=== PATIENT | female | born 1960 | race Caucasian/White ===

== ENCOUNTER 2021-07-08 18:03 | Inpatient (IN) | payer OTHER, MEDICAID ==
[~2021-07-08] VITALS: Ht 175.3 cm; Wt 139.3 kg
[2021-07-08 18:15] VITALS: BP 139/85
[2021-07-08] MEDS ORDERED: SEROQUEL (18:27)
[2021-07-08] MEDS ORDERED: XANAX (18:27)
[2021-07-08 18:40] LABS: ABSOLUTE BASOPHILS 0.1 thou/uL (0.0-0.2); ABSOLUTE EOSINOPHILS 0.2 thou/uL (0.0-0.7); ABSOLUTE LYMPHOCYTES 2.5 thou/uL (0.8-5.3); ABSOLUTE MONOCYTES 0.5 thou/uL (0.0-1.2); ABSOLUTE NEUTROPHILS 4.7 thou/uL (1.6-8.1); BASOPHILS 1.3 %; EOSINOPHILS 2.1 %; HEMATOCRIT 35.3 % (37.0-47.0); HEMOGLOBIN 11.8 gm/dL (12.0-15.0); LYMPHOCYTES 31.4 %; MCH 29.3 pg (26.0-34.0); MCHC 33.4 g/dL (28.0-37.0); MPV 8.5 fl. (7.2-11.1); NUCLEATED RBCS 0 /100WBC; PLATELET COUNT* 310 thou/uL (150-400); POLYS 59.2 %; RBC 4.01 mil/uL (4.20-5.00); RDW-CV 15.5 % (10.5-14.5); WBC 7.9 thou/uL (4.0-11.0)
[2021-07-08 18:52] LABS: CALCIUM 9.2 mg/dL (8.5-10.1); CREATININE 1.1 mg/dL (0.6-1.3)
[2021-07-08 19:02] LABS: TOTAL BILIRUBIN 0.3 mg/dL (<0.1-1.0); TOTAL PROTEIN 6.9 g/dL (6.4-8.2)
[2021-07-08 19:04] LABS: POTASSIUM 2.7 mmol/L (3.5-5.1)
--- NOTE | 2021-07-08 19:15 | NUR ---
PATIENT IS REFUSING ANY MEDICATIONS AT THIS TIME. PATIENT STATES SHE HAS MULTIPLE ALLERGIES AND SHE DOES NOT KNOW ALL OF THEM. PATIENTS POTASSIUM IS CRITICALLY LOW AT 2.7, PATIENT HAS BEEN EDUCATED ON RISKS OF NOT RECIEVING POTASSIUM AND IS CURRENTLY REFUSING. DR. GAMBINO IS AWARE.
[2021-07-08 22:00] VITALS: BP 154/90
[2021-07-08 22:19] VITALS: BP 150/106
[2021-07-08] MEDS ORDERED: XANAX 0.5 MG0.5 M1 PO (23:35)
[2021-07-08] MEDS ORDERED: BENADRYL25 MG PO (23:36)
[2021-07-08] MEDS ORDERED: BUDESONIDE0.5 MG/2 M INH (23:37)
[2021-07-08] MEDS ORDERED: CARVEDILOL12.5 MG PO (23:38)
[2021-07-08] MEDS ORDERED: CHILDREN'S ZYRT10 M1 PO (23:39)
[2021-07-08] MEDS ORDERED: FLEXERIL PO (23:40)
[2021-07-08] MEDS ORDERED: CUBICIN500 MG IVPB (23:40)
[2021-07-08] MEDS ORDERED: ACID CONTROLLER20 MG PO (23:41)
[2021-07-08] MEDS ORDERED: ADULT WAL-100 MG/5 M PO (23:42)
[2021-07-08] MEDS ORDERED: HUMALOG100 UNIT/1 SUBQ (23:43)
[2021-07-08] MEDS ORDERED: PREVACID30 MG PO (23:43)
[2021-07-08] MEDS ORDERED: LANTUS SUBQ (23:44)
[2021-07-08] MEDS ORDERED: SUPER THERAVIT1 EACH PO (23:44)
[2021-07-08] MEDS ORDERED: SEROQUEL200 MG PO ×2 (23:45→23:46)
[2021-07-08] MEDS ORDERED: VITAMIN C500 M2 PO (23:46)
[2021-07-09] MEDS ORDERED: ENTRESTO 24 MG1 EACH PO (00:15)
--- NOTE | 2021-07-09 04:18 | NUR ---
ASSUMED CARE OF PT AT 2200. PT IS ALERT AND ORIENTED X'3. HOWEVER, PT IS VERY MANIC, DELUSIONAL AND PARANOID. PT BELIEVES SHE IS ALLERGIC TO EVERYTHING. PT ALSO BELIEVES AND SAYS OUTRAGIOUS THINGS. ALSO PT BELIEVES SHE IS DYING. PT IS REFUSING SALINE AND WANTED TO REFUSE HER POTASSIUM. AFTER A LONG TALK PT FINALLY AGRRE TO POTASSIUM AND A PURE WICK FOR INCONTINANCE. PT IS ON ROOM AIR. PT IS IN SINUS RYTHM. VSS. PERRLA. NO COMPLAINTS OF PAIN. PT IS SITTING COMFORTABLY IN HER ROOM. WILL CONTINUE TO MONITOR PT.
[2021-07-09 11:12] VITALS: BP 152/97
[2021-07-09 12:00] VITALS: BP 129/75
--- NOTE | 2021-07-09 13:51 | EKG ---
[place] [address] ELECTROCARDIOGRAM REPORT Name: CHEY RAMIREZ Room: [address] ADM IN .R.#: [id number] Admission: 07/08/21 Attend Phys: Mele Cosby Discharge: Date of : 64 Date of Service: 07/08/211820 Report #: [id number] THIS REPORT FOR: //name// [facility] ED Test Date: 2021-07-08 Test Time: 18:21:06 Pat Name: CHEY RAMIREZ Department: Room: [facility] Gender: F Physically Impaired Teacher: GRACIA : 1960 Requested By: Kwadwo Sarkar Order Number: [id number] MD: Mikey Redd Measurements Intervals Taylor Rate: 76 P: [place]: QRS: -59 QRSD: 121 T: 7 QT: 570 QTc: 642 Interpretive Statements sinus rhythm artifact noted low voltage Nonspecific IVCD with LAD Anteroseptal infarct, age indeterminate No previous ECG available for comparison Electronically Signed On 07-09-2021 13:50:58 CDT by Mikey Redd [email or web address] <ELECTRONICALLY SIGNED> By: Mikey Redd MD, FACC 07/09/21 1350 182 182 Mikey Redd MD, [facility] /EPI
[2021-07-09 16:32] LABS: CREATININE 1.2 mg/dL (0.6-1.3); POTASSIUM 3.3 mmol/L (3.5-5.1)
[2021-07-09 16:35] LABS: MAGNESIUM 1.8 mg/dL (1.8-2.4); PHOSPHORUS* 4.1 mg/dL (2.5-4.9)
[2021-07-09 20:00] VITALS: BP 130/80
[2021-07-10] VITALS: BP 135/87
[2021-07-10 04:00] VITALS: BP 148/85
[2021-07-10 05:07] LABS: ABSOLUTE LYMPHOCYTES 1.1 thou/uL (0.8-5.3); ABSOLUTE MONOCYTES 0.6 thou/uL (0.0-1.2); ABSOLUTE NEUTROPHILS 6.9 thou/uL (1.6-8.1); BASOPHILS 0.2 %; HEMATOCRIT 33.3 % (37.0-47.0); HEMOGLOBIN 11.5 gm/dL (12.0-15.0); MCH 30.3 pg (26.0-34.0); MCHC 34.4 g/dL (28.0-37.0); MCV 88.1 fL (80.0-100.0); MONOCYTES 7.5 %; MPV 8.7 fl. (7.2-11.1); NUCLEATED RBCS 0 /100WBC; PLATELET COUNT* 289 thou/uL (150-400); POLYS 79.3 %; RBC 3.79 mil/uL (4.20-5.00); RDW-CV 15.7 % (10.5-14.5); WBC 8.7 thou/uL (4.0-11.0)
[2021-07-10 05:26] LABS: APTT 25.8 Seconds (25.0-31.3); INR 1.1
[2021-07-10 05:28] LABS: CALCIUM 8.5 mg/dL (8.5-10.1); CREATININE 1.2 mg/dL (0.6-1.3); MAGNESIUM 1.8 mg/dL (1.8-2.4); POTASSIUM 3.2 mmol/L (3.5-5.1); TOTAL BILIRUBIN 0.2 mg/dL (<0.1-1.0); TOTAL PROTEIN 6.8 g/dL (6.4-8.2)
[2021-07-10 07:08] LABS: GLYCOHEMOGLOBIN (HGB A1C) 6.7 % (4.8-5.6)
[2021-07-10 08:15] VITALS: BP 125/60
--- NOTE | 2021-07-10 14:28 | 2DMMODE ---
[place] [address] 2 D/M-MODE ECHOCARDIOGRAM Name: CHEY RAMIREZ Room: [address] ADM IN [facility]#: [id number] Admission: 07/08/21 Attend Phys: Mele Cosby Discharge: Date of : 64 Date of Service: 07/10/21 1427 Report #: [id number] THIS REPORT FOR: cc: Westley Gomez MD, Srinath MD Blick,Mikey Champion MD [facility] ~ APPROVED REPORT Study performed: 07/10/2021 10:48:16 EXAM: Comprehensive 2D, Doppler, and color-flow Echocardiogram Patient Location: In-Patient Room #: [facility] Status: routine BSA: 2.48 BP: 148/85 mmHg Rhythm: NSR Other Information Study Quality: Good Indications COPD Dyspnea 2D Dimensions IVSd: 14.28 (7-11mm) LVOT Diam: 21.37 (18-24mm) LVDd: 52.69 mm PWd: 14.39 (7-11mm) Ascending Ao: 37.89 (22-36mm) LVDs: 31.43 (25-40mm) Aortic Root: 34.75 mm Volumes Left Atrial Volume (Systole) LA ESV Index: 33.00 mL/m2 Aortic Valve AoV Peak Adalberto.: 1.32 m/s AO Peak Gr.: 6.97 mmHg LVOT Max P.42 mmHg AO Mean Gr.: 4.53 mmHg LVOT Mean P.79 mmHg LVOT Max V: 0.92 m/s AO V2 VTI: 26.15 cm LVOT Mean V: 0.62 m/s EUGENIA (VTI): 2.60 cm2 LVOT V1 VTI: 18.95 [place] [address] 2 D/M-MODE ECHOCARDIOGRAM Name: CHEY RAMIREZ Room: [address] IN .R.#: [id number] Admission: 07/08/21 Attend Phys: Mele Cosby Discharge: Date of : 64 Date of Service: 07/10/21 1427 Report #: [id number] Mitral Valve E/A Ratio: 1.07 MV Decel. Time: 204.86 ms MV E Max Adalberto.: 0.87 m/s MV PHT: 59.41 ms MVA (PHT): 3.70 cm2 TDI E/Lateral E': 6.69 E/Medial E': 8.70 Medial E' Adalberto.: 0.10 m/s Lateral E' Adalberto.: 0.13 m/s Pulmonary Valve PV Peak Adalberto.: 1.02 m/s PV Peak Gr.: 4.19 mmHg Left Ventricle The left ventricle is normal size. There is normal LV segmental wall motion. Mild concentric left ventricular hypertrophy. Left ventricular systolic function is normal. The left ventricular ejection fraction is within the normal range. LVEF is 50-55%. The left ventricular diastolic function is normal. Right Ventricle The right ventricle is normal size. The right ventricular systolic function is normal. Atria Left atrium is mildly dilated. The right atrium size is normal. Aortic Valve The aortic valve is normal in structure. No aortic regurgitation is present. There is no aortic valvular stenosis. Mitral Valve The mitral valve is normal in structure. trace mitral regurgitation. No evidence of mitral valve stenosis. Tricuspid Valve The tricuspid valve is normal in structure. Trace tricuspid regurgitation. Unable to assess PA pressure. Pulmonic Valve Pulmonic valve is not well visualized. There is no pulmonic [place] [address] 2 D/M-MODE ECHOCARDIOGRAM Name: CHEY RAMIREZ Room: [address] IN [facility]#: [id number] Admission: 07/08/21 Attend Phys: Mele Cosby Discharge: Date of : 64 Date of Service: 07/10/21 1427 Report #: [id number] Great Vessels The aortic root is normal in size. IVC is normal in size and collapses >50% with inspiration. Pericardium There is no pericardial effusion. <Conclusion> Mild concentric left ventricular hypertrophy. LVEF is 50-55%. Left atrium is mildly dilated. <ELECTRONICALLY SIGNED> By: Mikey Redd MD, FACC 07/10/211426 26 26 Mikey Redd MD, FACC /INF
[2021-07-10 16:00] VITALS: BP 161/93
--- NOTE | 2021-07-10 16:58 | CON ---
[address] [address] CONSULTATION Name: CHEY RAMIREZ Room: [address] ADM IN M.R.#: [id number] Admission: 07/08/21 Attend Phys: [place] Espinosa Discharge: Date of : 64 Report #: [id number] THIS REPORT FOR: cc: Westley Gomez MD, Srinath MD Pervez, Adeel MD ~ DATE OF CONSULTATION: 07/09/2021 REQUESTING PHYSICIAN: Kye Mccall MD INDICATION FOR CONSULTATION: Shortness of breath, history of asthma, and previous PEG and trach. HISTORY OF PRESENT ILLNESS: This is a 60-year-old female. We do not have old records available; and therefore, information available is fairly limited. Apparently, the patient was recently admitted to an outside institution, where she was in respiratory failure and underwent PEG and trach. She was eventually transferred to [place]. At some point, the tracheostomy was reversed, the patient says a couple of weeks ago. She still has the PEG in place. However, the patient at some point was allowed oral intake and now takes orally. She does, however, have dysphagia. She eventually was transferred from [place] to a long-term; she was unhappy with the care at the long-term; and shortly after transfer, EMS was called, and I am not certain as to whether the patient or another person called the EMS; the EMS eventually brought her to our hospital. At this time, the patient has elevated blood glucoses; she is hypokalemic; however, she is hemodynamically stable; and she is not on supplemental oxygen, she is saturating 94-96%. She is on high-dose Solu-Medrol started yesterday. At this point, she does not appear to be bronchospastic, although she does complain of shortness of breath. It is possible that she was bronchospastic yesterday. She does have a midline in place on the right upper extremity. The patient is fully awake; however, wanders off in answering questions; therefore, difficult to obtain a review of systems from her. REVIEW OF SYSTEMS: Review of systems for 12 points is negative except as mentioned above; however, her responses were sometimes not related to the questions asked. She has had some joint pains, which are longstanding. PAST MEDICAL HISTORY: Bronchial asthma; obstructive sleep apnea by clinical history, not known to me if it was in fact diagnosed by a sleep study; congestive heart failure; recent respiratory failure, requiring PEG and trach. Further information regarding past history not available at this time. SOCIAL HISTORY: Lifetime nonsmoker. No known history [place] [address] CONSULTATION Name: CHEY RAMIREZ Room: [address] IN M.R.#: [id number] Admission: 07/08/21 Attend Phys: West Espinosa Discharge: Date of : 64 Report #: [id number] drug use. CURRENT MEDICATIONS: List in [facility] reviewed. MEDICATIONS PRIOR TO TRANSFER: The list in [facility] also is reviewed. ALLERGIES: There are multiple agents listed as allergies. I am not certain if the patient in fact is allergic to all these agents. FAMILY HISTORY: No pertinent family history known at this time. PHYSICAL EXAMINATION: GENERAL: She is alert, awake and oriented; however, provides only a limited history. VITAL SIGNS: Has a pulse of 83 and a blood pressure of 129/75; she is saturating 94-96%, she is not on supplemental oxygen; respiratory rate is 16; she is afebrile with a temperature of 36.4. Body mass index elevated to 45. HEENT: Head is normocephalic and atraumatic. Pupils are equal and reactive. There is no throat erythema, fairly narrow airway, around Mallampati 4. NECK: Does not show raised JVP, asymmetry, mass or lymph nodes. There is also a bandage over her neck from a recent tracheostomy. CHEST: Symmetrical expansion on inspection and palpation. On auscultation, breath sounds are bilaterally equal, but decreased. I do not hear any added sounds. HEART: Regular. There is no murmur. ABDOMEN: Soft and nontender. The patient has a PEG in place in her abdomen. EXTREMITIES: Lower Extremities: Trace edema; there is some chronic venous changes; there is vague discomfort on palpation of the calf. Skin, however, is dry and intact in lower extremities. In the right upper extremity, there is a midline in place. NEUROLOGICAL: She did move all extremities bilaterally equally and spontaneously. No focal deficit was identified. LABORATORY DATA: The patient had a chest x-ray yesterday, this was reviewed; there are vague radiopaque densities bilaterally, likely chronic changes; she may also have mild increase in pulmonary vascular congestion. The patient's lab work, which shows significant hyperglycemia as well as hypokalemia, in [facility] reviewed. COVID-19 antigen was negative. CBC is unremarkable. ASSESSMENT AND PLAN: 1. Recent acute respiratory failure, requiring percutaneous endoscopic gastrostomy and tracheostomy. The patient still has the percutaneous endoscopic gastrostomy . Tracheostomy is noted to have been recently reversed. Awaiting old records regarding to assess etiology of her recent respiratory failure. The [address] [address] CONSULTATION Name: CHEY RAMIREZ Room: [address] IN [facility].#: [id number] Admission: 07/08/21 Attend Phys: West Espinosa Discharge: Date of : 64 Report #: [id number] patient currently is on room air, is not requiring supplemental oxygen, and her bicarbonate on the renal panel is 29 despite a potassium of 3.3, which would make it unlikely that she has significant CO2 retention. 2. Bronchial asthma. She does appear to have bronchial asthma; however, she does not appear to be actively bronchospastic. Glucoses are significantly elevated. I would cut back on steroid. We will consider discontinuing soon if she remains stable; however, I do recommend continuing with nebulized bronchodilators. We will also continue with budesonide via nebulizer and we will consider adding Singulair. 3. Obstructive sleep apnea by clinical history. I discussed with the patient that to me it appears she has obstructive sleep apnea, not known to me whether she has been diagnosed previously. I offered her a BiPAP while asleep. She says she is extremely claustrophobic. 4. Congestive heart failure, details are not available. She appears to be only mildly fluid overloaded. I would like to replace her potassium first. We will subsequently consider some diuresis. I did order an echo. 5. Hypokalemia. She has still now been refusing potassium replacement. I did convince her to receive IV potassium through her midline and I therefore sent a message to the patient's nurse via [employer] to replace potassium per protocol. We will also go ahead and give her 2 grams of magnesium sulfate. 6. Dysphagia/status post percutaneous endoscopic gastrostomy tube. I am told that we do not have the connectors for this particular percutaneous endoscopic gastrostomy. She is taking orally. She has difficulty swallowing. We will consult Speech. 7. Possibility of pulmonary infiltrates. She is ordered Levaquin. I am not certain if the patient has definite evidence of an infection. Pending further review, I did not change this at this time. We will repeat a chest x-ray tomorrow. 8. Evaluation for thromboembolic phenomena. We will do a D-dimer. If it is elevated, then I will consider obtaining lower extremity venous Dopplers as well as right upper extremity venous Dopplers. 9. Deep venous thrombosis prophylaxis, on Lovenox. 10. Gastrointestinal prophylaxis, on Protonix. 11. Clostridium difficile prophylaxis. If antibiotics to be continued, then we will suggest Lactinex. Thanks for this consultation. <ELECTRONICALLY SIGNED> By: Nico Dior MD 07/10/21 1658 174 Aantonio Dior MD /nt
--- NOTE | 2021-07-10 17:46 | NUR ---
PLAN FOR THE PT TO D/C TO SNF PENDING INSURANCE AUTH. PT/OT EVALS NEEDED TO ASSIST WITH OBTAINING AUTH. [facility] WILL ACCEPT PT AT D/C PENDING INSURANCE AUTH. CM WILL REMAIN AVAILABLE TO ASSIST AND FOLLOW NEEDED.
--- NOTE | 2021-07-10 19:10 | NUR ---
PT WAS VERY ANXIOUS AT THE BEGINNING OF THE SHIFT AND REQUIRED A SIGNIFICANT AMOUNT OF REASSURANCE AND EDUCATION. HAS CALMED DOWN GRADUALLY, BUT STILL IS DETERMINED TO TAKE ONLY CERTAIN MEDICATIONS. DESIRES TO BE ADMITTED TO REHAB HERE AT [facility].
[2021-07-10 20:59] VITALS: BP 130/86
[2021-07-11] VITALS (7 sets, daily range): BP systolic 116–152; BP diastolic 55–104
--- NOTE | 2021-07-11 08:34 | NUR ---
PT IS ABLE TO COMMUNICATE HER NEEDS TO STAFF WITH MINOR DIFFICULTY; SHE HAS HIGH ANXIETY, CONTROL ISSUES, AND HAS ADMITTTED: "I HAVE TROUBLE TRUSTING PEOPLE." SHE REQUIRES MORE TIME AND ATTENTION THAN THE USUAL PATIENT SHE ASKS A LOT OF QUESTIONS AND FREQUENTLY NEEDS ANSWERS EXPLAINED TO HER. SHE HAS DENIED THE NEED FOR PAIN MEDICATION UP TO 0700 TODAY. CM WORKING ON POSSIBLE REHAB PLACEMENT WHEN DISCHARGED. PT HAS EXPRESSED HER DESIRE TO HAVE HER PEG TUBE REMOVED. SHE FREQUENTLY REFUSES CERTAIN MEDICATIONS.
--- NOTE | 2021-07-11 16:32 | NUR ---
ASSUMED PT CARE AT 0730. PT IS ANXIOUSLY ALERT AND ORIENTED X4. ASSESSMENT COMPLETED. VSS. PT CHOSES NOT TO TAKE CERTAIN MEDICATIONS EVEN [facility] EDUCATION AND ENCOURAGEMENT. PT IS A LENIN WITH ASSIST OF 2-3. PT STATES SHE CANNOT BEAR WEIGHT AND DOESNT USE A WALKER, WHEELCHAIR, CANE OR OTHER ASSISTIVE DEVICE AT HOME PRIOR TO ADMISSION, PT IS INCONTINENT OF B&B. SAFETY MEASURES IN PLACE. PT ASSISTED WITH REPOSITIONING TO PROMOTE COMFORT.
[2021-07-11 21:00] LABS: CALCIUM 8.8 mg/dL (8.5-10.1); CREATININE 1.1 mg/dL (0.6-1.3); MAGNESIUM 1.9 mg/dL (1.8-2.4); POTASSIUM 4.1 mmol/L (3.5-5.1)
[2021-07-12] VITALS (7 sets, daily range): BP systolic 145–165; BP diastolic 65–99
[2021-07-12 04:54] LABS: ABSOLUTE LYMPHOCYTES 1.3 thou/uL (0.8-5.3); ABSOLUTE MONOCYTES 0.4 thou/uL (0.0-1.2); ABSOLUTE NEUTROPHILS 6.8 thou/uL (1.6-8.1); BASOPHILS 0.2 %; HEMATOCRIT 36.9 % (37.0-47.0); HEMOGLOBIN 12.5 gm/dL (12.0-15.0); MCH 29.8 pg (26.0-34.0); MCHC 33.8 g/dL (28.0-37.0); MONOCYTES 4.7 %; MPV 8.6 fl. (7.2-11.1); NUCLEATED RBCS 0 /100WBC; PLATELET COUNT* 300 thou/uL (150-400); POLYS 80.1 %; RDW-CV 15.5 % (10.5-14.5); WBC 8.5 thou/uL (4.0-11.0)
[2021-07-12 05:09] LABS: ALBUMIN 3.1 g/dL (3.4-5.0); CREATININE 1.1 mg/dL (0.6-1.3); POTASSIUM 3.8 mmol/L (3.5-5.1); TOTAL BILIRUBIN 0.3 mg/dL (<0.1-1.0); TOTAL PROTEIN 6.7 g/dL (6.4-8.2)
--- NOTE | 2021-07-12 08:55 | NUR ---
PT IS ABLE TO COMMUNICATE HER NEEDS TO STAFF WITH MINOR DIFFICULTY; SHE CAN BE CONFUSED AT TIMES AND CAN BE QUITE FUSSY; SHE HAS REFUSED MANY INTERVENTIONS IN THE PAST AND THEN LATER STATES THAT THERE WAS A "MISUNDERSTANDING". SHE HAS HIGH ANXIETY, BUT DOES NOT WISH TO TAKE ANTI-ANXIETY MEDS TO HELP HER CALM DOWN. PT HAS DENIED THE NEED FOR PAIN MEDICAITON UP TO 0700 THIS MORNING. SHE HAS TOLERATED THE PUREWICK DEVICE UP TO 0700 TODAY. POSSIBLE DISCHARGE, POSSIBLY TO A REHAB, SOON.
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
[2021-07-13] VITALS: BP 146/97
[2021-07-13 04:00] VITALS: BP 148/96
--- NOTE | 2021-07-13 07:20 | NUR ---
CHANGE OF SHIFT REPORT GIVEN PATIENT SEEN AT BEDSIDE, IN BED WATCHING TV ASSUMED PATIENT CARE
--- NOTE | 2021-07-13 07:26 | NUR ---
PATIENT SLEPT VERY LITTLE THIS SHIFT. PATIENT STATES SHE IS NOW GOING TO REFUSE ALL HER MEDS STATING HER BODY NEEDS A BREAK AND MEDS ARE MAKING HER SICK. STATES SHE DOES NOT WANT TO GO TO A [facility] WOULD BASICALLY RATHER BE HOMELESS. KATHERINE MIDLINE REMAINS SALINE LOCKED. WILL CONTINUE TO MONITOR.
[2021-07-13 08:00] VITALS: BP 152/94
[2021-07-13 12:11] VITALS: BP 168/99
--- NOTE | 2021-07-13 16:08 | NUR ---
PLAN OF CARE: PHYSICIAN INFORMS OF PLAN FOR THE PT TO D/C TO SNF PENDING SNF ACCEPTANCE AND INSURANCE AUTH. PLAN FOR THE PT TO RETURN TO [facility] THIS IS WHERE THE PT ADMITTED TO THIS HOSPITAL FROM. UPDATED CLINICAL INFO FAXED TO [facility]. CM WILL REMAIN AVAILABLE TO ASSIST AND FOLLOW NEEDED.
[2021-07-13 20:00] VITALS: BP 145/84
[2021-07-14 00:56] VITALS: BP 167/88
[2021-07-14 05:04] VITALS: BP 168/84
--- NOTE | 2021-07-14 07:00 | NUR ---
ASSUMED PT CARE AT 1930. ASSESSMENT COMPLETED CHARTED. ABLE TO MAKE NEEDS KNOWN. CALLED NURSING STAFF INTO ROOM CONSTANTLY FOR DIFFERENT THINGS AND WHEN TRYING TO LEAVE ROOM TO GET ITEMS NEEDED, PATIENT WOULD GET AGGITATED. PT WAS NOTED TO THROW OBJECTS ON THE FLOOR INCLUDING HEART MONITOR R/T HOW SHE THOUGHT IT WAS SHOCKING HER. PT ALSO CUSSED OUT STAFF WHEN TRYING TO HELP CLEAN UP HER ROOM OR HELP PATIENT DO A TASK. PT WAS NICE TO ONE STAFF MEMBER BUT NOT TO THE REST. PT UNABLE TO SLEEP MOST OF THE NIGHT. REFUSED TURNS, MEDS, AND INSULIN. PT HAS THREATENED TO CALL A VACUUM EVAPORATION OPERATOR, AND THE STATE. HAS ALSO CALLED THE VISUAL EDUCATION DIRECTOR NUMEROUS TIMES AND THE APPRENTICE EMBALMER. WILL CONTINUE TO MONITOR.
[2021-07-14 07:45] VITALS: BP 159/71
[2021-07-14 11:00] VITALS: BP 177/89
--- NOTE | 2021-07-14 15:35 | NUR ---
PLAN OF CARE: PHYSICIAN INFORMS OF PLAN TO CONSULT TELE PSYCH. SNF PLACEMENT AT [facility] REMAINS PENDING AT THIS TIME WE REMAIN PENDING INSURANCE AUTH. CM WILL REMAIN AVAILABLE TO ASSIST AND FOLLOW NEEDED.
[2021-07-14 17:25] VITALS: BP 147/98
[2021-07-14 20:00] VITALS: BP 144/80
[2021-07-15 05:22] VITALS: BP 152/78
--- NOTE | 2021-07-15 14:35 | NUR ---
Spoke to Lety from [facility]. Patient has been approved to go to SNF at [facility]. Auth start date is 07/15 and the NRD is 07/17. Auth ID #: [id number]. CM for case through [facility] is [facility]. SW to contact [place] to arrange transportation. [facility] CM to continue to follow for safe dc planning
--- NOTE | 2021-07-15 17:10 | NUR ---
PHYSICIAN INFORMS OF PLAN TO D/C THE PT TODAY TO SNF. PLAN FOR THE PT TO RETURN TO [facility]URN [facility]. INSURANCE AUTH OBTAINED THROUGH [employer], AND [facility] ADMISS[facility] INFORMED OF PLAN TO ACCEPT THE PT TODAY. [facility] TRANSPORTATION ARRANGED. RN TO CALL REPORT. CM WILL REMAIN AVAILABLE TO ASSIST AND FOLLOW NEEDED. [facility] PHONE: [phone]
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
== END 2021-07-15 17:03 | DRG 202 ==
LOC: M.ERS 18:03 → M.2W 18:35 → M.TBA-ER 18:35 → M.2W 20:59
PROVIDERS: Family Medicine; Internal Medicine; Internal Medicine Critical Care Medicine; ADMIT Internal Medicine; ATTEND Internal Medicine
DX: J45.901 Unspecified asthma with (acute) exacerbation (principal); J96.11 Chronic respiratory failure with hypoxia; I50.32 Chronic diastolic (congestive) heart failure; E66.2 Morbid (severe) obesity with alveolar hypoventilation; Z68.42 Body mass index [BMI] 45.0-49.9, adult; E87.6 Hypokalemia; R13.10 Dysphagia, unspecified; E11.65 Type 2 diabetes mellitus with hyperglycemia; F29 Unspecified psychosis not due to a substance or known physiological condition; I48.0 Paroxysmal atrial fibrillation; Z20.822 Contact with and (suspected) exposure to COVID-19; Z88.2 Allergy status to sulfonamides; Z88.8 Allergy status to other drugs, medicaments and biological substances; Z91.041 Radiographic dye allergy status; Z86.711 Personal history of pulmonary embolism; Z86.14 Personal history of Methicillin resistant Staphylococcus aureus infection; Z91.19 Patient's noncompliance with other medical treatment and regimen